=== PATIENT | male | born 1995 | race Caucasian/White ===

== ENCOUNTER 2019-05-01 01:39 | Outpatient (CLI) | payer BC, SELFPAY ==
--- NOTE | 2019-05-01 08:15 | DI.US_ITS ---
EXAM: US HERNIA CLINICAL HISTORY: EVALUATE FOR PROBABLE HERNIA, GROIN PAIN RT CHRONIC, R10.31, RLQ PAIN, G89, K46.9, ABDOMINAL HERNIA WO OBSTRUCTION/GANGRENE. TECHNIQUE: Ultrasound performed using standard protocol. COMPARISON: No exams were available for comparison FINDINGS: In the right inguinal region, there does appear to be a reducible hernia. IMPRESSION: Findings consistent with a right inguinal hernia. If further imaging is warranted, a CT scan may be considered.
== END 2019-05-01 01:59 ==
PROVIDERS: PCP Student in an Organized Health Care Education/Training Program; Visit Provider Student in an Organized Health Care Education/Training Program
DX: R10.31 Right lower quadrant pain (principal); K40.90 Unilateral inguinal hernia, without obstruction or gangrene, not specified as recurrent; G89.29 Other chronic pain
CPT/HCPCS: 76857

== ENCOUNTER 2019-06-08 05:59 | Day surgery (SDC) | payer BC, SELFPAY ==
[2019-06-08] VITALS (8 sets, daily range): BP systolic 77–129; BP diastolic 38–56; PULSE 67–82; RESP 12–20; TEMP 36.6–37.2; O2SAT 94–96
[2019-06-08] MEDS: Lactated Ringers 1,000 ML 80 ML IV (06:45)
--- NOTE | 2019-06-08 07:14 | HPE_ITS ---
Date of service: 06/08/19 Time of Service: 07:14 Assessment and Plan Assessment and plan (1) Right inguinal hernia: Status: Acute Assessment and plan: We discussed right inguinal hernia repair. The pr ocedure was described including the risk of infection, bleeding, recurrence, chronic pain or numbness or vascular injury. The alternative is observation although hernias tend to enlarge and become more symptomatic over time. The patient was advised not to lift more than 15 pounds for one month postop. The patient agrees to proceed. History of Present Illness Narrative: Presents for treatment of a right groin hernia. Aware of it since age 14. With working out, especially after the last 2-3 years notices a bulge. Has to rest and lay down to reduce it. Bothers daily. Can be difficult to stand. No N/V. No change in bowel habits. US confirmed right inguinal hernia. Is just recovering from a URI. Used nebulizer as a child, nothing recently. Review of Systems All systems reviewed & are unremarkable except as noted in HPI and below PFSH Surgical History History of left knee surgery (Acute ~05/2015) History of tonsillectomy (Chronic) Family History Father Substance abuse Mother Anxiety Depression Paternal Grandfather Cancer Maternal Grandfather Heart disease Social History Smoking/Tobacco Use Status: Never Alcohol Intake: current Alcohol Intake frequency: holidays/special occasions only Drug use: Occasionally Substance use type: marijuana Adopted: No Caregiver/Support person: No Foster care: No current occupation: [employer], [employer] Sexually active: Yes Do you think of yourself as: straight/heterosexual Current gender identity: male Do you feel safe at home: Yes Do you feel safe in your relationship?: Yes Meds Home Medications and Allergies Home Medications Medication Instructions Recorded Confirmed Type multivitamin 1 tab PO DAILY 04/26/19 06/08/19 History Allergies Allergy/AdvReac Type Severity Reaction Status Date / Time No Known Allergies Allergy Verified 06/08/19 06:21 Exam Const General: healthy appearing and not in acute distress Nutritional Appearance: well nourished Orientation: oriented x3 HENMT Head: normal to inspection Eyes Sclera: sclerae normal Pupils: PERRL Neck Neck: no lymphadenopathy Resp Effort & Inspection: normal respiratory effort Auscultation: clear to auscultation bilaterally and no wheezes Cardio Rate: regular rate Rhythm: regular rhythm GI Inspection: non-distended Palpation: soft, no hepatosplenomegaly, hernia (moderate sized reducible right inguinal hernia. NO left.) and nontender Skin General skin exam: no rashes or lesions noted Neuro General: alert Cognition: normal cognition Extrem General: normal to inspection Psych Affect: normal affect Attitude: cooperative Results Last Vital Signs Temp 99.0 F 06/08/19 06:15 Pulse 70 06/08/19 06:15 Resp 18 06/08/19 06:15 BP 129/55 L 06/08/19 06:15 Pulse Ox 96 06/08/19 06:15
[2019-06-08] MEDS: ceFAZolin 2 GM/50 ML BAG IVPB (07:37)
--- NOTE | 2019-06-08 07:48 | PDOC.DSDIS_ITS ---
Discharge Plan Disposition Patient Disposition: HOME Condition: Good Discharge Details Reason For Visit: Right inguinal hernia repair, removal thigh lipoma Attending Provider: Isabell Teresa Primary Care Provider: Yoanna Fernandez Home Meds and New Rx's Prescriptions: Continued multivitamin Tablet 1 tab PO DAILY RF: 0 Discharge Instructions Additional Instructions: The top bandage can be removed tomorrow. The steri strips will usually stick for about a week. When the edges start to curl up, they can be removed. It is okay to shower tomorrow, the water can run over the steri strips Do not swim or soak in a tub for two weeks Call for any concerns including fever, increased pain, vomiting, incision redness or drainage. It is normal to have swelling under the incisions. This can last for 4-6 weeks. Do not lift more than 15 pounds for four to six weeks. Walking and stairs are fine. Do not drive if on narcotic pain meds or if limited by pain. May use Tylenol alternating with ibuprofen for pain control. Ice is also an option. The maximum dose for Tylenol is 4000 mg/day. May use ibuprofen 800 mg every 8 hours as needed. If concerned about constipation, you may use a stool softener or milk of magnesia. Referrals: Isabell Teresa MD [ [facility] STAFF PHYSICIAN] - (Return in 10-14 days for a postop check) Activity:: Do not lift more than 15 pounds Remove Dressings/Wound Care:: 24 hours Shower/Bathe:: 24 hours Diet:: As Tolerated Discharge Orders Discharge Orders: Discharge Order (Routine); Ordered 06/08/19 Ordered By: Isabell Teresa DS: Diagnosis Discharge Diagnosis (1) Right inguinal hernia: Status: Acute (2) Lipoma of right thigh: Status: Acute
--- NOTE | 2019-06-08 09:20 | SOFT_PTH ---
PATIENT: Bairon Paul LOC: [facility] U#:[id number] AGE/SX: 24/M ROOM: RE06/08/[address]: Isabell Teresa MD : 1995 BED: DIS: 06/08/2019 SPEC #: [id number] RECD: 06/08/19 11:35 STATUS: FARHEEN REQ #: [id number] NANCY: 06/08/19 09:[address]: Isabell Teresa DEPT: Surgical Specimen RECD BY: Jody Catalan ENTERED: 06/08/19 11:36 SP TYPE: SOFT OTHR DR: Yoanna Fernandez DO Tissues: 1 - SOFT TISSUE MISC (INC. LIPOMA) Procedures: GROSS AND MICRO LEVEL 3 Comments: [id number]
[2019-06-08] MEDS: Bupivacaine 0.25% Pres-Free 30 ML VIAL (09:33)
[2019-06-08] MEDS: fentaNYL 100 MCG/2 ML VIAL IVP (10:35)
--- NOTE | 2019-06-08 11:07 | ROE_ITS ---
REPORT OF OPERATIVE PROCEDURE DATE OF PROCEDURE June 08, 2019 PREOPERATIVE DIAGNOSES 1. Right inguinal hernia. 2. Right thigh lipoma. POSTOPERATIVE DIAGNOSES 1. Indirect right inguinal hernia. 2. Right thigh lipoma x2. PROCEDURES 1. Right inguinal hernia repair with mesh. 2. Excision right thigh lipoma x2. SURGEON Isabell Teresa M.D. [employer] Lanette Etienen. ANESTHESIA General, right TAP block, and local. INDICATIONS This is a 24-year-old man with a right inguinal hernia since approximately age 14. It has become more bothersome recently. On examination, he has a reducible moderate size right inguinal hernia. The pat ient also has numerous lipomas, however, the right anterior thigh lipoma is bothersome because it rub s on his pants. He is requesting excision of this as well. PROCEDURE DESCRIPTION The patient was placed supine on the operating table and after induction of General anesthetic had a right groin TAP block placed. His right groin and right upper thigh were prepped and draped sterilely . The skin overlying the inguinal hernia and also overlying the lipoma were injected with 1% lidocain e with epinephrine. The Ioban was placed. The incision was made in the groin and subcutaneous was di vided with cautery down to the external oblique fascia. There was a bridging band that was clamped, d ivided and ligated with a #3-0 Vicryl tie. Marcaine was injected underneath the external oblique fas amanda and then a small incision made, and extended bluntly through the external inguinal ring. The sper matic cord was dissected off the pubic tubercle and encircled with a Mary drain. Dissection in the spermatic cord revealed a large lipoma, which was dissected up to the internal ring and reduced. The re was also a moderate sized hernia sac that was chronic in nature and was slowly dissected free of t he spermatic cord structures up to the level of the internal ring. The sac was open and had no conten ts. I therefore suture ligated it at its base with a #2-0 Silk stitch and amputated the excess sac. O nce the hernia sac and lipoma were reduced, a large mesh plug was sutured into the internal ring with interrupted 2-0 Prolene stitches. Two of the sutures were placed inferiorly to the shelving edge of the inguinal ligament. The flat sheet of mesh was then cut to the proper shape and placed on the floo r of the inguinal canal and sutured in position in standard Samir fashion. The mesh was inspe cted and it was not too tight around the spermatic cord. There was good hemostasis so the external ob lique fascia was closed with a running #3-0 Vicryl stitch, as was Ashli's fascia and the skin closed with a running #4-0 Monocryl subcuticular stitch. The right thigh lipoma was removed by making an incision over the mass and dissecting down into the d eep subcutaneous tissue with cautery. The lipoma was very well defined and was mostly removed careful blunt dissection and some cautery. The initial lipoma was 8 cm in size. There appeared to be a fulln ess at the more proximal aspect of the incision site, so further dissection revealed a second lipoma, which was removed again with mostly blunt dissection. This was also removed intact and measured 4.5 cm. There was good hemostasis, so the skin was closed with a running #4-0 Monocryl subcuticular stitc h.
== END 2019-06-08 12:31 | disposition home or self-care (01) ==
PROVIDERS: PCP Student in an Organized Health Care Education/Training Program; Visit Provider Surgery
PROC: (CPT 49505; principal; 2019-06-08 07:30)
DX: K40.90 Unilateral inguinal hernia, without obstruction or gangrene, not specified as recurrent (principal); D17.6 Benign lipomatous neoplasm of spermatic cord; D17.23 Benign lipomatous neoplasm of skin and subcutaneous tissue of right leg
CPT/HCPCS: 49505; 27337; 76942; NC; 88304; C1781; J0690; J1100; J1885; J2250; J2405; J2704; J3010

== ENCOUNTER 2020-07-25 20:27 | Outpatient (CLI) | payer BC, SELFPAY ==
--- NOTE | 2020-07-25 14:42 | DI.RAD_ITS ---
EXAM: XR KNEE LT 3V AP,LAT,UGO CLINICAL HISTORY: Left lateral knee acute injury - lateral blow M25.562 PAIN LT KNEE. TECHNIQUE: 2D digital imaging was performed. COMPARISON: No exams were available for comparison FINDINGS: BONES: No acute fracture is present. No bony destructive lesion is seen. There is mild spurring at t he lateral femoral condyle. JOINTS: The joint spaces are well maintained. The knee is normally aligned. No joint effusion is see n. SOFT TISSUE: Normal. IMPRESSION: Minimal degenerative changes. DATA REPOSITORY: RADIATION DOSE DELIVERED:
== END 2020-07-25 20:47 ==
PROVIDERS: PCP Student in an Organized Health Care Education/Training Program; Visit Provider Student in an Organized Health Care Education/Training Program
DX: M25.562 Pain in left knee (principal); M17.12 Unilateral primary osteoarthritis, left knee
CPT/HCPCS: 73562

== ENCOUNTER 2020-08-22 02:12 | Outpatient (CLI) | payer BC, SELFPAY ==
--- NOTE | 2020-08-22 | DI.MRI_ITS ---
Exam(s) MR LOWER JOINT LT WO EXAM: MR LOWER JOINT LT WO CLINICAL HISTORY: LT KNEE PAIN,?RECURRENT MENISCAL TEAR,MEDIAL CHONDRAL FEMORAL DEFECT,S/P TECHNIQUE: Multiplanar multisequence MRI was performed.. COMPARISON: No exams were available for comparison FINDINGS: MR examination of the knee was performed according to the usual protocol. There is no significant knee joint effusion. There is an approximately 10 x 9 millimeter in diameter focus of abnormal signal seen in the posterio r aspect of the lateral femoral condyle subchondral cortex with minimal cortical deformity at this si te. This may represent a small focus of early or partially healed osteochondritis dissecans, there i s minimal cartilage deformity and signal abnormality overlying this abnormal bony focus. No other si gnificant bony signal abnormality identified in the region surveyed. Medial tibiofemoral joint: The articular cartilage of the femur and tibia appears well maintained. T he meniscus and attachments appear intact. The medial collateral ligament appears intact. No mold puller omedial corner injury seen. Lateral tibiofemoral joint: The articular cartilage of the femur and tibia appears well maintained ex cept for the aforementioned minimal cartilage contour deformity and signal abnormality overlying the presumed small focus of osteochondritis dissecans at the posterior lateral femoral condyle.. The men iscus and attachments appear intact. The lateral collateral ligament complex and posterolateral corn er structures appear intact. Patellofemoral joint and extensor mechanism: The articular cartilage of the patellofemoral joint appe ars intact. The superior and inferior patellar fat pads appear normal with no signal abnormality. The quadriceps tendon and patellar tendon appear intact with no evidence of a tear or significant ondina ma. The medial and lateral retinacula appear intact. Cruciate ligaments: Cruciate ligaments and attachments appear normal with no evidence of a tear. Tibiofibular joint: No specific abnormality involving the tibiofibular joint. 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 There is minimal articular cartilage deformity ass ociated with this finding, the finding is of uncertain age. No other significant findings. DATA REPOSITORY:
== END 2020-08-22 02:32 ==
PROVIDERS: PCP Student in an Organized Health Care Education/Training Program; Visit Provider Physician Assistant
DX: M25.562 Pain in left knee (principal); M93.262 Osteochondritis dissecans, left knee
CPT/HCPCS: 73721

== ENCOUNTER 2021-02-19 17:06 | Emergency (ER) | payer BC, SELFPAY ==
[2021-02-19] VITALS (20 sets, daily range): BP systolic 139; BP diastolic 85; PULSE 76–107; RESP 20–29; TEMP 37.2; O2SAT 96
--- NOTE | 2021-02-19 17:00 | RT.EKG_ITS ---
APPROVED REPORT Exam: Resting ECG Reason for Exam: chest pain Patient Location: E HR:103 bpm ECG Measurements Heart Rate 103 AXIS MN 169 P 67 QRSd 102 QRS 51 QT 336 T 1 QTc 440 Conclusion Sinus tachycardia...rate> 99 Physician: No significant ST elevation or depression. No Q waves. Inverted T wave is present in jackelyn d III. No evidence of right heart strain. no STEMI.
--- NOTE | 2021-02-19 17:30 | DI.CT_ITS ---
Exam(s) CT BRAIN NECK CTA EXAM: CT BRAIN NECK CTA CLINICAL HISTORY: headache, chest pain, r/o bleed. TECHNIQUE: Imaging Protocol: Axial CT angiography was performed with multi-slice acquisition and mu lti-planar and/or 3D reconstructions. CONTRAST MATERIAL: Intravenous: Omnipaque 350 Contrast volume:structured data in ml COMPARISON: No exams were available for comparison FINDINGS: CTA Neck W: Aortic arch anatomy: The aortic arch anatomy is conventional. Anterior circulation: Both common carotid arteries ascend with normal luminal diameters. There is no significant atheroscl erotic disease at the level the carotid bifurcations and proximal internal carotid arteries on either side. Both internal carotid arteries are nicely patent in the neck and skull base-carotid canals. Posterior circulation: Vertebral arteries both originated conventional fashion off of the subclavian arteries with no eviden ce of significant stenosis at their origins. Both vertebral arteries ascend with normal and approximately equal luminal diameters within the linh en transverse area both vertebral arteries contribute to the formation of the basilar artery at the s kull base. CTA Brain W: Anterior circulation: Both internal carotid arteries are patent in the carotid canals and cavernous sinuses. The supraclin oid aspects are patent. No aneurysms. A1 segments are thin but patent as are the proximal aspects o f the anterior cerebral arteries (apparently technical air did not include the entire brain). There is no evidence of aneurysm aneurysm at the level of the anterior communicating artery. Middle cerebral arteries are patent bilaterally. No intraluminal thrombus. No aneurysms. Posterior circulation: Basilar artery ascends the midline with normal luminal diameter. Distally it gives off superior cere bellar arteries and above this level terminates as patent bilateral posterior cerebral arteries. The re is no evidence of aneurysm of the tip of the basilar artery. CT BRAIN: There is no evidence of intracranial hemorrhage, mass effect, or shift of midline structures. There are no extra-axial fluid collections. Ventricles are not enlarged or shifted. There are no ring enh ancing lesions in the brain and no abnormal meningeal enhancement. IMPRESSION: 1. Patent carotid and vertebral arteries in the neck. No significant stenosis. No dissection. 2. Patent intracranial arteries. No significant stenosis. No occlusion. No dissection. No aneury sm. 3. No significant intracranial findings. RADIATION DOSE DELIVERED: 2,347.9mGy.cm Total DLP DATA REPOSITORY: All CT scans at this facility are submitted to the National Radiology Data Registry (NRDR) Dose Index Registry (DIR) with the [employer] ([employer]). RADIATION OPTIMIZATION: All CT scans at this facility use at least one of these dose optimization te chniques: automated exposure control; mA and/or kV adjustment per patient size (includes targeted exa ms where dose is matched to clinical indication); or iterative reconstruction.
[2021-02-19] MEDS: Normal Saline 1,000 ML 1000 ML IV (17:45)
[2021-02-19 18:02] LABS: Abs Immature Grans 0.02 10^3/uL (0.0-0.06); Absolute Basophil Count 0.01 10^3/uL (0.0-0.2); Absolute Eosinophil Count 0.09 10^3/uL (0.0-0.7); Absolute Lymphocyte Count 2.22 10^3/uL (1.2-3.4); Absolute Monocyte Count 0.51 10^3/uL (0.1-0.8); Absolute Neutrophil Count 4.17 10^3/uL (1.2-6.7); Basophils % 0.1; Eosinophils % 1.3; HCT 45.2 % (40.0-50.0); HGB 15.6 g/dL (13.5-17.5); Immature Grans % 0.3; Lymphocytes % 31.6; MCH 29.3 pg (27.0-33.0); MCHC 34.5 % (32.0-36.0); MPV 10.3 fL (8.0-11.0); Monocytes % 7.3; Neutrophils % 59.4; Nucleated RBC 0 %; Platelet Count 209 10^3/uL (130-400); RBC 5.32 10^6/uL (4.36-5.78); RDW 12.3 % (11.8-14.1); RDW-SD 37.8 fL; WBC 7.02 10^3/uL (4.4-10.8)
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
[2021-02-19 18:23] LABS: ALT 69 U/L (16-63); AST 28 U/L (15-37); Albumin 4.6 g/dL (3.4-5.0); Alkaline Phosphatase 80 U/L (46-116); Anion Gap 8.9 mmol/L (3-11); BUN 16 mg/dL (7-18); Bilirubin, Total 0.6 mg/dL (0.2-1.0); CO2 30.1 mmol/L (21.0-32.0); CREATININE 1.1 mg/dL (0.70-1.30); Calcium 9.4 mg/dL (8.5-10.1); Chloride 103 mmol/L (98-107); Glucose 98 mg/dL (74-106); NT-proBNP 16 pg/mL (<300); Potassium 3.3 mmol/L (3.5-5.1); Sodium 142 mmol/L (136-145); Total Protein 8.1 g/dL (6.4-8.2)
[2021-02-19 18:24] LABS: Troponin I < 0.05 ng/mL (<0.06)
[2021-02-19 18:48] LABS: D-Dimer 580 ng/mlFEU (<500)
--- NOTE | 2021-02-19 19:00 | DI.CT_ITS ---
Exam(s) CT CHEST PE CTA EXAM: CT CHEST PE CTA CLINICAL HISTORY: chest pain, sob, r/o pe. TECHNIQUE: Imaging Protocol: CT angiography of the chest was performed using pulmonary embolus micky col. Multi planar reconstructions were performed. CONTRAST MATERIAL: Intravenous: Omnipaque 350 Contrast volume: 100 cc COMPARISON: CT CT BRAIN NECK CTA from 02/19/2021 FINDINGS: CHEST: PULMONARY ARTERIES: There are no intraluminal filling defects to suggest acute pulmonary emboli. LUNGS: There are no infiltrates nor evidence of pulmonary infarction.. There are no pleural effusions . MEDIASTINUM: There is no hilar nor mediastinal adenopathy. Visualized thyroid unremarkable. CARDIAC: Heart size is upper normal. There is no pericardial effusion.Caliber of the thoracic aorta is within normal limits. There is no significant shift of the interventricular septum. PARTIALLY VISUALIZED UPPERMOST ABDOMEN: No obvious findings OSSEOUS: No significant osseous lesions.. IMPRESSION: 1. No evidence of acute pulmonary emboli. No evidence of pulmonary infarction.No pleural effusions. 2. No pulmonary infiltrates nor ominous pulmonary nodules. 3. No intrathoracic adenopathy. RADIATION DOSE DELIVERED: 526.9mGy.cm Total DLP DATA REPOSITORY: All CT scans at this facility are submitted to the National Radiology Data Registry (NRDR) Dose Index Registry (DIR) with the [employer] (ACR). RADIATION OPTIMIZATION: All CT scans at this facility use at least one of these dose optimization te chniques: automated exposure control; mA and/or kV adjustment per patient size (includes targeted exa ms where dose is matched to clinical indication); or iterative reconstruction.
[2021-02-19] MEDS: Normal Saline - Diluent 50 ML VIAL IV ×2 (20:09→20:10)
[2021-02-19] MEDS: Normal Saline Flush 10 ML SYR IVP (20:09)
[2021-02-19] MEDS: Omnipaque 350 MG/ML 100 ML BTL IJ ×2 (20:09→20:10)
--- NOTE | 2021-02-19 20:21 | DI.VRAD_ITS ---
PROCEDURE INFORMATION: Exam: CTA Chest With Contrast Exam date and time: 02/19/2021 7:12 PM Age: 26 years old Clinical indication: Other: Chest pain, SOB, R/O pe TECHNIQUE: Imaging protocol: Computed tomographic angiography of the chest with contrast. 3D rendering (Not supervised by radiologist): MIP and/or 3D reconstructed images were created by the technologist. COMPARISON: CT BRAIN NECK CTA 02/19/2021 6:54 PM FINDINGS: Pulmonary arteries: Normal. No pulmonary emboli. Aorta: Unremarkable. No aortic aneurysm. No aortic dissection. Lungs: Unremarkable. No consolidation. No masses. Pleural spaces: Unremarkable. No pneumothorax. No pleural effusion. Heart: Unremarkable. No cardiomegaly. No pericardial effusion. Lymph nodes: Unremarkable. No enlarged lymph nodes. Bones/joints: Unremarkable. No acute fracture. Soft tissues: Unremarkable. IMPRESSION: No acute pulmonary embolism or other acute findings. Dictated and Authenticated by: Doyle Ortega MD. Ordering:ELIANE Brink MD
--- NOTE | 2021-02-19 20:54 | DI.VRAD_ITS ---
PROCEDURE INFORMATION: Exam: CT Angiography Head With Contrast, Arteriography Exam date and time: 02/19/2021 5:37 PM Age: 26 years old Clinical indication: Headache, chest pain, R/O bleed TECHNIQUE: Imaging protocol: Computed tomography angiography of the head with contrast. Exam focused on the arteries. 3D rendering (Not supervised by radiologist): MIP and/or 3D reconstructed images were created by the technologist. COMPARISON: No relevant prior studies available. FINDINGS: ANTERIOR CIRCULATION: Right internal carotid artery: Unremarkable. Intracranial segment is patent with no significant stenosis. No aneurysm. Right middle cerebral artery: Unremarkable. No occlusion or significant stenosis. No aneurysm. Right anterior cerebral artery: Unremarkable. No occlusion or significant stenosis. No aneurysm. Left internal carotid artery: Unremarkable. Intracranial segment is patent with no significant stenosis. No aneurysm. Left middle cerebral artery: Unremarkable. No occlusion or significant stenosis. No aneurysm. Left anterior cerebral artery: Unremarkable. No occlusion or significant stenosis. No aneurysm. POSTERIOR CIRCULATION: Right vertebral artery: Unremarkable. No occlusion or significant stenosis. No aneurysm. Left vertebral artery: Unremarkable. No occlusion or significant stenosis. No aneurysm. Basilar artery: Unremarkable. No occlusion or significant stenosis. No aneurysm. Right posterior cerebral artery: Unremarkable. No occlusion or significant stenosis. No aneurysm. Left posterior cerebral artery: Unremarkable. No occlusion or significant stenosis. No aneurysm. Brain: No definite mass, mass effect, or midline shift. Cerebral ventricles: No ventriculomegaly. Bones/joints: Unremarkable. No acute fracture. Soft tissues: Unremarkable. IMPRESSION: No large vessel stenosis or occlusion. PROCEDURE INFORMATION: Exam: CT Angiography Neck With Contrast Exam date and time: 02/19/2021 5:37 PM Age: 26 years old Clinical indication: Headache, chest pain, R/O bleed TECHNIQUE: Imaging protocol: Computed tomography angiography of the neck with contrast. 3D rendering (Not supervised by radiologist): MIP and/or 3D reconstructed images were created by the technologist. COMPARISON: No relevant prior studies available. FINDINGS: Right common carotid artery: No stenosis. No dissection or occlusion. Right internal carotid artery: No stenosis of the extracranial segment. No dissection or occlusion. Right external carotid artery: No occlusion or stenosis of the origin. Left common carotid artery: No stenosis. No dissection or occlusion. Left internal carotid artery: No stenosis of the extracranial segment. No dissection or occlusion. Left external carotid artery: No occlusion or stenosis of the origin. Right vertebral artery: No stenosis. No dissection or occlusion. Left vertebral artery: No stenosis. No dissection or occlusion. Soft tissues: Normal. No significant soft tissue swelling. Bones/joints: No acute fracture. IMPRESSION: No stenosis or occlusion. REFERENCES: NASCET CRITERIA. The degree of internal carotid artery stenosis is based on NASCET criteria. Normal is no stenosis. Mild is less than 50% stenosis. Moderate is 50-69% stenosis. Severe is 70% to 99% stenosis. Total occlusion is no detectable patent lumen. Dictated and Authenticated by: Elsy Traore MD. Ordering:ELAINE Brink MD
== END 2021-02-19 21:09 | disposition home or self-care (01) ==
PROVIDERS: Emergency Provider Student in an Organized Health Care Education/Training Program; PCP Student in an Organized Health Care Education/Training Program
DX: R51.9 Headache, unspecified (principal); R07.9 Chest pain, unspecified; R06.02 Shortness of breath
CPT/HCPCS: 36415; 70496; 70498; 71275; 80053; 93005; 96360; 99285; 83880; 84484; 85025; 85379; 93010; 99284; J3490

== ENCOUNTER 2021-02-26 02:52 | Outpatient (CLI) | payer BC, SELFPAY ==
[2021-02-26 17:16] LABS: Calcium 9.6 mg/dL (8.5-10.1)
[2021-02-26 17:17] LABS: Albumin 4.5 g/dL (3.4-5.0); BUN 13 mg/dL (7-18); Glucose 92 mg/dL (74-106)
[2021-02-26 17:18] LABS: ALT 47 U/L (16-63); AST 19 U/L (15-37); Alkaline Phosphatase 88 U/L (46-116); Anion Gap 9.4 mmol/L (3-11); Bilirubin, Total 0.7 mg/dL (0.2-1.0); CO2 29.6 mmol/L (21.0-32.0); Chloride 103 mmol/L (98-107); Potassium 4.1 mmol/L (3.5-5.1); Sodium 142 mmol/L (136-145)
[2021-02-26 17:38] LABS: Cholesterol 236 mg/dL (<200); Triglyceride 103 mg/dL (<150)
[2021-02-26 17:39] LABS: Calculated LDL 174 mg/dL (<100); HDL Cholesterol 42 mg/dL (40-60)
== END 2021-02-26 02:53 | disposition home or self-care (01) ==
LOC: LBO 02:52
PROVIDERS: PCP Student in an Organized Health Care Education/Training Program; Visit Provider Student in an Organized Health Care Education/Training Program
DX: E46 Unspecified protein-calorie malnutrition (principal); Z13.1 Encounter for screening for diabetes mellitus; Z13.220 Encounter for screening for lipoid disorders
CPT/HCPCS: 36415; 80053; 80061

== ENCOUNTER 2021-03-14 00:46 | Outpatient (CLI) | payer BC, SELFPAY ==
[2021-03-14] MEDS: Omnipaque 350 MG/ML 100 ML BTL IJ (15:17)
[2021-03-14] MEDS: Normal Saline Flush 10 ML SYR IVP (15:18)
[2021-03-14] MEDS: Normal Saline - Diluent 50 ML VIAL IV (15:18)
--- NOTE | 2021-03-14 15:25 | DI.CT_ITS ---
Exam(s) CT BRAIN CTA EXAM: CT BRAIN CTA CLINICAL HISTORY: f/u, headache, family h/o aneurysm,sensation alteration. TECHNIQUE: Imaging Protocol: Axial CT angiography was performed with multi-slice acquisition and mu lti-planar and/or 3D reconstructions. CONTRAST MATERIAL: Intravenous: Omnipaque 350 Contrast volume:structured data in ml Intravenous: Omnipaque 350 Contrast volume:100 ml COMPARISON: CT CT BRAIN NECK CTA from 02/19/[address] CHEST PE CTA from 02/19/[address] BRAIN NECK CTA from 02/19/2021 FINDINGS: CT Head W/O and w with contrast: Ventricles and Extra axial spaces: Normal in size and morphology for the patient's age. Hemorrhage: None. Cerebral parenchyma: Normal. Midline shift: None. Brainstem/Cerebellum: Normal. Calvarium: Normal. Visualized Paranasal sinuses/Mastoids: Tiny mucous retention cyst or polyp medial wall right maxillar y sinus, otherwise clear. Soft Tissues: Unremarkable. CTA Brain W: Internal Carotid Arteries: Petrous: Normal. Cavernous: Normal. Cerebral: Normal. Middle Cerebral Arteries: Right: No aneurysm, occlusion or significant stenosis. Left: No aneurysm, occlusion or significant stenosis. Anterior Cerebral Arteries: Right: No aneurysm, occlusion or significant stenosis. Left: No aneurysm, occlusion or significant stenosis. Posterior cerebral Arteries: Right: No aneurysm, occlusion or significant stenosis. Left: No aneurysm, occlusion or significant stenosis. Vertebral Arteries: Right: No aneurysm, occlusion or significant stenosis. Left: No aneurysm, occlusion or significant stenosis. Basilar Artery: No aneurysm, occlusion or significant stenosis. IMPRESSION: 1. Normal CTA examination of the [place]. 2. Unremarkable CT Head. RADIATION DOSE DELIVERED: Total DLP Total DLP Total DLP DATA REPOSITORY: All CT scans at this facility are submitted to the National Radiology Data Registry (NRDR) Dose Index Registry (DIR) with the [employer] (ACR). RADIATION OPTIMIZATION: All CT scans at this facility use at least one of these dose optimization te chniques: automated exposure control; mA and/or kV adjustment per patient size (includes targeted exa ms where dose is matched to clinical indication); or iterative reconstruction.
== END 2021-03-14 01:06 ==
PROVIDERS: PCP Student in an Organized Health Care Education/Training Program; Visit Provider Student in an Organized Health Care Education/Training Program
DX: R20.9 Unspecified disturbances of skin sensation; R51.9 Headache, unspecified; Z82.49 Family history of ischemic heart disease and other diseases of the circulatory system
CPT/HCPCS: 70496; J3490

== ENCOUNTER 2021-09-01 17:56 | Emergency (ER) | payer BC, SELFPAY ==
[2021-09-01 18:25] VITALS: BP 142/103; PULSE 122; RESP 18; TEMP 39.1; O2SAT 93
--- NOTE | 2021-09-01 18:45 | DI.RAD_ITS ---
Exam(s) XR PORTABLE CHEST AP EXAM: XR PORTABLE CHEST AP CLINICAL HISTORY: cough/fever. TECHNIQUE: 2D digital imaging was performed. COMPARISON: No exams were available for comparison FINDINGS: Single AP portable view. Heart size is upper normal. The mediastinum is not widened. Lungs are clear. No infiltrates nor obvious pleural effusions. Healed midshaft fracture of the right clavicle is noted. IMPRESSION: No acute pulmonary findings on this single AP portable view of the chest. DATA REPOSITORY: RADIATION DOSE DELIVERED: All CT scans at this facility use at least one of these dose optimization techniques: automated exposure control; mA and/or kV adjustment per patient size (includes targeted e xams where dose is matched to clinical indication); or iterative reconstruction.
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
[2021-09-01 19:31] LABS: Abs Immature Grans 0.02 10^3/uL (0.0-0.06); Absolute Basophil Count 0.01 10^3/uL (0.0-0.2); Absolute Monocyte Count 1.11 10^3/uL (0.1-0.8); Absolute Neutrophil Count 4.55 10^3/uL (1.2-6.7); Basophils % 0.2; HCT 43.6 % (40.0-50.0); HGB 15.3 g/dL (13.5-17.5); Immature Grans % 0.3; Lymphocytes % 6.6; MCH 29.1 pg (27.0-33.0); MCHC 35.1 % (32.0-36.0); MCV 83 fL (80-95); MPV 10.1 fL (8.0-11.0); Monocytes % 18.2; Neutrophils % 74.7; Platelet Count 154 10^3/uL (130-400); RBC 5.25 10^6/uL (4.36-5.78); RDW 12.4 % (11.8-14.1); RDW-SD 37.7 fL; WBC 6.09 10^3/uL (4.4-10.8)
[2021-09-01 19:33] LABS: Lipase 52 U/L (73-393)
[2021-09-01 19:38] LABS: ALT 31 U/L (16-63); AST 25 U/L (15-37); Albumin 4.1 g/dL (3.4-5.0); Alkaline Phosphatase 78 U/L (46-116); Anion Gap 14.2 mmol/L (3-11); BUN 12 mg/dL (7-18); Bilirubin, Total 0.8 mg/dL (0.2-1.0); CO2 22.8 mmol/L (21.0-32.0); CREATININE 1.2 mg/dL (0.70-1.30); Calcium 8.6 mg/dL (8.5-10.1); Chloride 98 mmol/L (98-107); Glucose 107 mg/dL (74-106); Potassium 3.4 mmol/L (3.5-5.1); Sodium 135 mmol/L (136-145); Total Protein 7.6 g/dL (6.4-8.2)
[2021-09-01 20:00] LABS: COVID-19 PCR Negative (Negative); Influenza A PCR Positive (Negative); Influenza B PCR Negative (Negative); RSV PCR Negative (Negative)
[2021-09-01 20:05] LABS: Source Nasopharynx
--- NOTE | 2021-09-01 20:26 | DI.VRAD_ITS ---
PROCEDURE INFORMATION: Exam: XR Chest Exam date and time: 09/01/2021 7:40 PM Age: 26 years old Clinical indication: Cough and fever TECHNIQUE: Imaging protocol: XR of the chest. Views: 1 view. COMPARISON: CT CHEST PE CTA 02/19/2021 8:02 PM FINDINGS: Lungs: The lungs are clear. There is no pulmonary vascular congestion. Pleural spaces: There are no pleural effusions present. There is no evidence of pneumothorax. Heart/Mediastinum: Heart size is likely near the upper limits of normal. Bones/joints: There is an old healed right clavicle fracture. IMPRESSION: No active cardiopulmonary disease identified. Dictated and Authenticated by: Jonnie Edgar MD. Ordering:MED Antonio MD
[2021-09-01 20:28] VITALS: BP 128/65; PULSE 92; RESP 18; TEMP 36.7; O2SAT 95
[2021-09-01] MEDS: Acetaminophen 500 MG TAB 1000 MG PO (20:32)
[2021-09-01] MEDS: Ibuprofen 800 MG TAB PO (20:32)
[2021-09-01] MEDS: Oseltamivir 75 MG CAP PO (20:32)
== END 2021-09-01 20:43 | disposition home or self-care (01) ==
PROVIDERS: Emergency Provider Physician Assistant; PCP Student in an Organized Health Care Education/Training Program
DX: J10.1 Influenza due to other identified influenza virus with other respiratory manifestations (principal); R50.9 Fever, unspecified; R05.1 Acute cough; Z20.822 Contact with and (suspected) exposure to COVID-19
CPT/HCPCS: 80053; 83690; 87637; 99283; 71045; 81003; 85025

== ENCOUNTER 2022-06-18 18:53 | Emergency (ER) | payer BC, SELFPAY ==
[2022-06-18 19:03] VITALS: BP 135/88; PULSE 85; RESP 16; TEMP 36.9; O2SAT 95
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
[2022-06-18] MEDS: Ibuprofen 600 MG TAB PO (20:20)
== END 2022-06-18 20:32 | disposition home or self-care (01) ==
PROVIDERS: Emergency Provider Physician Assistant; PCP Student in an Organized Health Care Education/Training Program
DX: T23.202A Burn of second degree of left hand, unspecified site, initial encounter (principal); X15.3XXA Contact with hot saucepan or skillet, initial encounter
CPT/HCPCS: 99283; 99284

== ENCOUNTER 2022-10-08 08:27 | Outpatient (CLI) | payer BC, SELFPAY | END 2022-10-08 08:28 | disposition home or self-care (01) | LOC: CARDOPNVT 08:27 | PROVIDERS: PCP Student in an Organized Health Care Education/Training Program; Visit Provider Student in an Organized Health Care Education/Training Program | DX: R00.2 Palpitations (principal) | CPT/HCPCS: 93246 ==

== ENCOUNTER 2022-11-05 10:58 | Outpatient (CLI) | payer BC, SELFPAY ==
--- NOTE | 2022-11-05 11:08 | W.CARDEVENT ---
Date of service: 11/05/22 Time of Service: 11:08 Cardiac Event Recorder Referring Provider:: Yoanna Fernandez Indications:: Palpitations Cardiac Event Note: This is a 14-day cardiac event monitor ordered for palpitations Rhythm throughout is sinus with an average heart rate of 78. Minimum was 36, maximum 182. there were very rare isolated atrial and ventricular ectopic beats. There was 1 atrial triplet There was no atrial fibrillation no high-grade AV block no pauses greater than 3 seconds Symptoms had no correlation with any dysrhythmia .
== END 2022-11-05 10:59 | disposition home or self-care (01) ==
LOC: CARDOPNVT 10:58
PROVIDERS: PCP Student in an Organized Health Care Education/Training Program; Visit Provider Internal Medicine Cardiovascular Disease
DX: R00.2 Palpitations (principal)

== ENCOUNTER 2023-07-24 20:30 | Outpatient (CLI) | payer BC, SELFPAY ==
[2023-08-12 08:02] LABS: BUN 17 mg/dL (7-18); Calcium 8.6 mg/dL (8.5-10.1); Chloride 105 mmol/L (98-107); Estimated GFR 103.84 (mL/min/1.73m2); Glucose 103 mg/dL (74-106); Sodium 142 mmol/L (136-145)
[2023-08-12 19:59] LABS: Calculated LDL 154 mg/dL (<100); Cholesterol 217 mg/dL (<200); HDL Cholesterol 45 mg/dL (40-60); Triglyceride 94 mg/dL (<150)
== END 2023-07-24 20:31 | disposition home or self-care (01) ==
LOC: LBO 20:31
PROVIDERS: Absent Provider Student in an Organized Health Care Education/Training Program; PCP Student in an Organized Health Care Education/Training Program; Referring Provider Student in an Organized Health Care Education/Training Program; Visit Provider Student in an Organized Health Care Education/Training Program
DX: Z13.220 Encounter for screening for lipoid disorders (principal); I10 Essential (primary) hypertension
CPT/HCPCS: 36415; 80048; 80061